=== PATIENT | male | born 1945 | race Caucasian/White ===

== ENCOUNTER 2024-06-03 08:11 | Outpatient (CLI) | payer MEDICARE, SELFPAY ==
[2024-06-03 13:11] LABS: Anion Gap 5 mmol/L (4-12); Blood Urea Nitrogen 18 mg/dL (9-20); Carbon Dioxide 31 mmol/L (22-30); Chloride 103 mmol/L (98-107); Potassium 4.3 mmol/L (3.4-5.0); Sodium 139 mmol/L (137-145)
[2024-06-03 13:12] LABS: Alanine Aminotransferase 22 U/L (6-50); Albumin Level 3.8 g/dL (3.5-5.1); Alkaline Phosphatase 103 U/L (38-126); Aspartate Amino Transferase 41 U/L (17-59); Bilirubin,Total 0.5 mg/dL (0.2-1.3); Calcium 9.3 mg/dL (8.4-10.2); Cholesterol 97 mg/dL (0-200); Estimated Glomerular Filt Rate > 60; Glucose 122 mg/dL (65-110); HDL Direct 34 mg/dL; Triglycerides 56 mg/dL (<150)
[2024-06-03 13:25] LABS: LDL Cholesterol Direct 47 mg/dL
[2024-06-03 13:31] LABS: Microalbumin Urine Random 14.8 mg/L (0-16.7)
[2024-06-03 13:34] LABS: Creatinine Urine 99.2 mg/dL; MALB Creatinine Ratio 14.9 mg/g (0-30)
[2024-06-03 15:16] LABS: Hemoglobin A1C 7.1 % (<5.7)
== END 2024-06-03 08:12 | disposition home or self-care (01) ==
PROVIDERS: PCP Family Medicine; Visit Provider Physician Assistant Medical
DX: E78.5 Hyperlipidemia, unspecified (principal); E11.9 Type 2 diabetes mellitus without complications; I10 Essential (primary) hypertension
CPT/HCPCS: 36415; 80053; 80061; 82043; 83036